=== PATIENT | male | born 1980 | race Caucasian/White ===

== ENCOUNTER → 2017-06-11 09:36 | Outpatient (REF) | payer BC, SELFPAY ==
[2017-06-11 21:35] LABS: Amphetamine/Metha Screen,Urine Negative ng/mL (<1000); Barbiturates Screen,Urine Negative ng/mL (<200); Benzodiazepines Screen,Urine Positive ng/mL (200); Cannabinoid Screen,Urine Negative ng/mL (<50); Cocaine Screen,Urine Negative ng/g (<300); Methadone Screen,Urine Negative ng/mL (<300); Opiate Screen,Urine Negative ng/mL (<300); Phencyclidine Screen,Urine Negative ng/mL (<25)
== END ==
LOC: LAB 09:36
PROVIDERS: Visit Provider Emergency Medicine
DX: Z79.899 Other long term (current) drug therapy (principal)
CPT/HCPCS: 80305

== ENCOUNTER → 2017-09-06 08:59 | Outpatient (REF) | payer BC, SELFPAY ==
[2017-09-06 14:13] LABS: Amphetamine/Metha Screen,Urine Negative ng/mL (<1000); Barbiturates Screen,Urine Negative ng/mL (<200); Benzodiazepines Screen,Urine Positive ng/mL (200); Cannabinoid Screen,Urine Negative ng/mL (<50); Cocaine Screen,Urine Negative ng/g (<300); Methadone Screen,Urine Negative ng/mL (<300); Opiate Screen,Urine Negative ng/mL (<300); Phencyclidine Screen,Urine Negative ng/mL (<25)
== END ==
LOC: LAB 08:59
PROVIDERS: Visit Provider Emergency Medicine
DX: Z79.899 Other long term (current) drug therapy (principal)
CPT/HCPCS: 80305

== ENCOUNTER → 2017-11-29 13:31 | Outpatient (REF) | payer BC, SELFPAY ==
[2017-11-29 14:26] LABS: Amphetamine/Metha Screen,Urine Negative ng/mL (<1000); Barbiturates Screen,Urine Negative ng/mL (<200); Benzodiazepines Screen,Urine Positive ng/mL (<200); Cannabinoid Screen,Urine Negative ng/mL (<50); Cocaine Screen,Urine Negative ng/mL (<300); Methadone Screen,Urine Negative ng/mL (<300); Opiate Screen,Urine Negative ng/mL (<300); Phencyclidine Screen,Urine Negative ng/mL (<25)
== END ==
LOC: LAB 13:31
PROVIDERS: Visit Provider Emergency Medicine
DX: Z79.899 Other long term (current) drug therapy (principal)
CPT/HCPCS: 80305

== ENCOUNTER → 2018-03-04 13:46 | Outpatient (CLI) | payer BC, SELFPAY ==
[2018-03-04 14:44] LABS: Amphetamine/Metha Screen,Urine Negative ng/mL (<1000); Barbiturates Screen,Urine Negative ng/mL (<200); Benzodiazepines Screen,Urine Negative ng/mL (<200); Cannabinoid Screen,Urine Negative ng/mL (<50); Cocaine Screen,Urine Negative ng/mL (<300); Methadone Screen,Urine Negative ng/mL (<300); Opiate Screen,Urine Negative ng/mL (<300); Phencyclidine Screen,Urine Negative ng/mL (<25)
== END ==
PROVIDERS: Visit Provider Emergency Medicine
DX: Z79.899 Other long term (current) drug therapy (principal)
CPT/HCPCS: 80305

== ENCOUNTER → 2018-06-02 13:59 | Outpatient (CLI) | payer BC, SELFPAY ==
[2018-06-02 16:26] LABS: Amphetamine/Metha Screen,Urine Negative ng/mL (<1000); Barbiturates Screen,Urine Negative ng/mL (<200); Benzodiazepines Screen,Urine Positive ng/mL (<200); Cannabinoid Screen,Urine Negative ng/mL (<50); Cocaine Screen,Urine Negative ng/mL (<300); Methadone Screen,Urine Negative ng/mL (<300); Opiate Screen,Urine Negative ng/mL (<300); Phencyclidine Screen,Urine Negative ng/mL (<25)
== END ==
PROVIDERS: Visit Provider Emergency Medicine
DX: Z79.899 Other long term (current) drug therapy (principal)
CPT/HCPCS: 80305

== ENCOUNTER → 2018-09-02 13:41 | Outpatient (CLI) | payer BC, SELFPAY ==
[2018-09-02 15:28] LABS: Amphetamine/Metha Screen,Urine Negative ng/mL (<1000); Barbiturates Screen,Urine Negative ng/mL (<200); Benzodiazepines Screen,Urine Positive ng/mL (<200); Cannabinoid Screen,Urine Negative ng/mL (<50); Cocaine Screen,Urine Negative ng/mL (<300); Methadone Screen,Urine Negative ng/mL (<300); Opiate Screen,Urine Negative ng/mL (<300); Phencyclidine Screen,Urine Negative ng/mL (<25)
== END ==
PROVIDERS: Visit Provider Emergency Medicine
DX: F41.9 Anxiety disorder, unspecified (principal)
CPT/HCPCS: 80305

== ENCOUNTER → 2018-12-01 13:48 | Outpatient (CLI) | payer BC, SELFPAY ==
[2018-12-01 14:29] LABS: Amphetamine/Metha Screen,Urine Negative ng/mL (<1000); Barbiturates Screen,Urine Negative ng/mL (<200); Benzodiazepines Screen,Urine Positive ng/mL (<200); Cannabinoid Screen,Urine Negative ng/mL (<50); Cocaine Screen,Urine Negative ng/mL (<300); Methadone Screen,Urine Negative ng/mL (<300); Opiate Screen,Urine Negative ng/mL (<300); Phencyclidine Screen,Urine Negative ng/mL (<25)
== END ==
PROVIDERS: Visit Provider Emergency Medicine
DX: Z79.899 Other long term (current) drug therapy (principal)
CPT/HCPCS: 80305

== ENCOUNTER → 2019-02-20 13:35 | Outpatient (CLI) | payer BC, SELFPAY ==
[2019-02-20 15:12] LABS: Amphetamine/Metha Screen,Urine Negative ng/mL (<1000); Barbiturates Screen,Urine Negative ng/mL (<200); Benzodiazepines Screen,Urine Positive ng/mL (<200); Cannabinoid Screen,Urine Negative ng/mL (<50); Cocaine Screen,Urine Negative ng/mL (<300); Methadone Screen,Urine Negative ng/mL (<300); Opiate Screen,Urine Negative ng/mL (<300); Phencyclidine Screen,Urine Negative ng/mL (<25)
== END ==
PROVIDERS: Visit Provider Emergency Medicine
DX: Z79.899 Other long term (current) drug therapy (principal)
CPT/HCPCS: 80305

== ENCOUNTER → 2019-05-20 16:39 | Outpatient (CLI) | payer BC, SELFPAY ==
[2019-05-20 17:34] LABS: Amphetamine/Metha Screen,Urine Negative ng/mL (<1000); Barbiturates Screen,Urine Negative ng/mL (<200); Benzodiazepines Screen,Urine Positive ng/mL (<200); Cannabinoid Screen,Urine Negative ng/mL (<50); Cocaine Screen,Urine Negative ng/mL (<300); Methadone Screen,Urine Negative ng/mL (<300); Opiate Screen,Urine Negative ng/mL (<300); Phencyclidine Screen,Urine Negative ng/mL (<25)
== END ==
PROVIDERS: Visit Provider Emergency Medicine
DX: Z79.899 Other long term (current) drug therapy (principal)
CPT/HCPCS: 80305

== ENCOUNTER → 2020-06-01 14:11 | Outpatient (CLI) | payer SELFPAY ==
[2020-06-01 15:20] LABS: Amphetamine/Metha Screen,Urine Negative ng/ml (<1000)
[2020-06-01 15:21] LABS: Barbiturates Screen,Urine Negative ng/ml (<200)
[2020-06-01 15:22] LABS: Benzodiazepines Screen,Urine Positive ng/ml (<200)
[2020-06-01 15:23] LABS: Cannabinoid Screen,Urine Negative ng/ml (<50); Cocaine Screen,Urine Negative ng/ml (<300)
[2020-06-01 15:24] LABS: Methadone Screen,Urine Negative ng/ml (<300); Opiate Screen,Urine Negative ng/ml (<300)
[2020-06-01 15:25] LABS: Phencyclidine Screen,Urine Negative ng/ml (<25)
== END ==
PROVIDERS: Visit Provider Emergency Medicine
DX: F41.9 Anxiety disorder, unspecified (principal); Z79.899 Other long term (current) drug therapy
CPT/HCPCS: 80305

== ENCOUNTER → 2020-08-25 12:03 | Outpatient (CLI) | payer SELFPAY ==
[2020-08-25 12:34] LABS: Basophils # 0.1 K/mm3 (0-0.2); Basophils % 1.4 % (0.1-2.0); Eosinophils # 0.3 K/mm3 (0.0-0.4); Eosinophils % 5.1 % (0.1-12.0); Hematocrit 44.1 % (42.0-52.0); Hemoglobin 14.3 g/dL (14.1-18.0); Lymphocytes # 1.5 K/mm3 (0.7-4.5); Lymphocytes % 23.5 % (10-50); Mean Corpuscular HGB Conc 32.4 g/dL (31.8-35.4); Mean Corpuscular Hemoglobin 29.9 pg (27.0-31.2); Mean Corpuscular Volume 92.3 fl (80-94); Mean Platelet Volume 6.9 fl (7.4-10.4); Monocytes # 0.3 K/mm3 (0.1-1.0); Monocytes % 4.7 % (1.7-9.3); Neutrophils # 4.1 K/mm3 (1.8-7.8); Neutrophils % 65.3 % (37.0-80.0); Platelet Count 290 K/mm3 (142-424); Red Blood Count 4.77 M/mm3 (4.60-6.20); Red Cell Distribution Width 13.4 % (11.5-17.5); White Blood Count 6.2 K/mm3 (4.8-10.8)
[2020-08-25 13:14] LABS: Alanine Aminotransferase 34 U/L (12-78); Albumin Level 5.1 g/dl (3.5-5.0); Albumin/Globulin Ratio 1.8 (1.1-1.8); Alkaline Phosphatase 58 U/L (38-126); Anion Gap 8.8 mEq/L (5-15); Aspartate Amino Transferase 48 U/L (17-59); Bilirubin,Total 0.5 mg/dl (0.2-1.3); Blood Urea Nitrogen 13 mg/dl (9-20); Calcium 10.4 mg/dl (8.4-10.2); Carbon Dioxide 33 mmol/L (22.0-30.0); Chloride 103 mmol/L (98-107); Cholesterol 228 mg/dl (140-200); Estimated Glomerular Filt Rate 109 ml/min (>60); GFR (African American) 132 ML/MIN (>60); Globulin 2.9 g/dL (1.3-3.2); Glucose 110 mg/dl (74-100); Potassium 4.8 mmoL/L (3.5-5.1); Sodium 140 mmol/L (136-145); Triglycerides 50 mg/dl (30-150); VLDL Cholesterol 10 mg/dL (0-40)
[2020-08-25 13:23] LABS: Chol/HDL Ratio 1.7 (1-3.5); HDL Cholesterol 133 mg/dl (40-60)
[2020-08-25 13:25] LABS: Direct LDL Cholesterol 81.52 mg/dL (100-129)
[2020-08-25 13:30] LABS: Free T4 (Free Thyroxine) 0.77 ng/dl (0.78-2.19)
[2020-08-25 13:31] LABS: 25-OH Vitamin D, Total 28.1 ng/mL (30-100)
[2020-08-25 13:44] LABS: Thyroid Stimulating Hormone 0.63 uIU/mL (0.465-4.68)
== END ==
PROVIDERS: Visit Provider Emergency Medicine
DX: R53.83 Other fatigue (principal); E55.9 Vitamin D deficiency, unspecified
CPT/HCPCS: 36415; 80053; 80061; 82306; 84439; 84443; 85025

== ENCOUNTER → 2020-12-23 15:18 | Outpatient (CLI) | payer SELFPAY ==
[2020-12-23 15:49] LABS: Benzodiazepines Screen,Urine Positive ng/ml (<200)
[2020-12-23 15:50] LABS: Amphetamine/Metha Screen,Urine Negative ng/ml (<1000); Barbiturates Screen,Urine Negative ng/ml (<200)
[2020-12-23 15:51] LABS: Cannabinoid Screen,Urine Negative ng/ml (<50)
[2020-12-23 15:52] LABS: Cocaine Screen,Urine Negative ng/ml (<300); Methadone Screen,Urine Negative ng/ml (<300)
[2020-12-23 15:53] LABS: Opiate Screen,Urine Negative ng/ml (<300); Phencyclidine Screen,Urine Negative ng/ml (<25)
== END ==
PROVIDERS: Visit Provider Emergency Medicine
DX: Z79.899 Other long term (current) drug therapy (principal)
CPT/HCPCS: 80305

== ENCOUNTER → 2021-03-24 13:24 | Outpatient (CLI) | payer BC, SELFPAY ==
[2021-03-24 22:46] LABS: Amphetamine/Metha Screen,Urine Negative ng/ml (<1000)
[2021-03-24 22:47] LABS: Barbiturates Screen,Urine Negative ng/ml (<200)
[2021-03-24 22:48] LABS: Benzodiazepines Screen,Urine Positive ng/ml (<200)
[2021-03-24 22:49] LABS: Cannabinoid Screen,Urine Negative ng/ml (<50)
[2021-03-24 23:11] LABS: Cocaine Screen,Urine Negative ng/ml (<300)
[2021-03-24 23:12] LABS: Methadone Screen,Urine Negative ng/ml (<300); Opiate Screen,Urine Negative ng/ml (<300)
[2021-03-24 23:13] LABS: Phencyclidine Screen,Urine Negative ng/ml (<25)
== END ==
PROVIDERS: Visit Provider Emergency Medicine
DX: F41.9 Anxiety disorder, unspecified (principal); Z01.89 Encounter for other specified special examinations
CPT/HCPCS: 80305

== ENCOUNTER → 2021-06-21 14:32 | Outpatient (CLI) | payer SELFPAY ==
[2021-06-21 16:21] LABS: Amphetamine/Metha Screen,Urine Negative ng/ml (<1000); Benzodiazepines Screen,Urine Positive ng/ml (<200)
[2021-06-21 16:22] LABS: Barbiturates Screen,Urine Negative ng/ml (<200)
[2021-06-21 16:23] LABS: Cannabinoid Screen,Urine Negative ng/ml (<50); Methadone Screen,Urine Negative ng/ml (<300)
[2021-06-21 16:24] LABS: Cocaine Screen,Urine Negative ng/ml (<300)
[2021-06-21 16:25] LABS: Opiate Screen,Urine Negative ng/ml (<300); Phencyclidine Screen,Urine Negative ng/ml (<25)
== END ==
PROVIDERS: Visit Provider Emergency Medicine
DX: Z79.899 Other long term (current) drug therapy (principal)
CPT/HCPCS: 80305

== ENCOUNTER 2021-09-06 17:45 | Observation (INO) | payer BC, SELFPAY ==
[2021-09-06 17:46] VITALS: BP 129/102; PULSE 80; RESP 15; TEMP 37.3; O2SAT 97; BMI 20.3
[2021-09-06 17:58] LABS: POC Glucose,Bedside 87 (70-110)
--- NOTE | 2021-09-06 18:10 | HMH.EDGENADL ---
ED Disposition Clinical Impression: Altered mental status Qualifiers: Altered mental status type: delirium Qualified Code(s): R41.0 - Disorientation, unspecified Disposition: Admitted as Observation Condition on Discharge: Fair Instructions: DI for Altered Mental Status Referrals: Roderick Mi MD [Primary Care Provider] - - Critical Care Critical Care Time: No Attestation: On 09/06/21, the high probability of a clinically significant, sudden or life threatening deterioration of the following system(s) required my full and direct attention, intervention and personal management. The time I documented below is in addition to time spent performing reported procedures but includes the following listed in this critical care notation. Medical Decision Making - Prabhu Inquiry Pt receiving controlled substance: Yes Prabhu was queried for this patient: Yes Risks and benefits of using a controlled substance: were not discussed with pt by me Vital Signs: 09/06/21 17:46 Temperature 99.2 F Temperature Source Oral Pulse Rate [Right Radial] 80 Respiratory Rate 15 Blood Pressure [Right Arm] 129/102 H Blood Pressure Mean [Right Arm] 111 Blood Pressure Source [Right Arm] Automatic Cuff Blood Pressure Position [Right Arm] Sitting 02 Sat by Pulse Oximetry 97 Oxygen Delivery Method Room Air - Lab Data Lab Results 09/06/21 17:51: POC Glucose 87 09/06/21 17:55: WBC 12.6 H, RBC 5.56, Hgb 17.3, Hct 49.1, MCV 88.2, MCH 31.1, MCHC 35.2, RDW 13.3, Plt Count 351, MPV 7.6, Neut % (Auto) 75.0, Lymph % (Auto) 15.8, [place] % (Auto) 5.9, Eos % (Auto) 1.4, Baso % (Auto) 2.0, Neut # (Auto) 9.5 H, Lymph # (Auto) 2.0, [place] # (Auto) 0.7, Eos # (Auto) 0.2, Baso # (Auto) 0.3 H 09/06/21 17:55: Sodium 138, Potassium 3.7, Chloride 106, Carbon Dioxide 24, Anion Gap 11.7, BUN 14, Creatinine 0.70, Estimated Creat Clear 138, Estimated GFR 126, Est GFR ( Amer) 153, Glucose 116 H, Calcium 9.9, Total Bilirubin 1.0, AST 34, ALT 29, Alkaline Phosphatase 65, Total Protein 7.8, Albumin 4.7, Globulin 3.1, Albumin/Globulin Ratio 1.5, Salicylates < 1.0 L, Acetaminophen < 10 L 09/06/21 17:55: Lactate 0.8 09/06/21 17:55: Plasma/Serum Alcohol < 10 09/06/21 19:00: SARS-CoV-2 (PCR) Not detected, Influenza A Untype (PCR) Not detected, Influenza Type B (PCR) Not detected Result diagrams: 09/06/21 17:55 09/06/21 17:55 Orders (Tests/Meds): ED MEDICATIONS Generic Name Dose Route Start Last Admin Trade Name Freq PRN Reason Stop Dose Admin Sodium Chloride 1,000 mls @ 999 mls/hr 09/06/21 18:15 09/06/21 18:18 Sod Chlor 0.9% 1000ml Bag IV 09/06/21 19:15 999 mls/hr .Q1H1M ARIN Administration Sodium Chloride 10 ml 09/06/21 18:15 Sodium Chloride 0.9% 10ml Flush Syringe IV 10/06/21 18:14 NEEDED PRN Maintain IV Site Sodium Chloride 10 ml 09/06/21 18:52 Sodium Chloride 0.9% 10ml Vial IV 10/06/21 18:51 NEEDED PRN to Dilute Lorazepam inj Sodium Chloride 10 ml 09/06/21 19:23 Sodium Chloride 0.9% 10ml Vial IV 10/06/21 19:22 NEEDED PRN to Dilute Lorazepam inj Discontinued Medications Generic Name Dose Route Start Last Admin Trade Name Freq PRN Reason Stop Dose Admin Lorazepam 1 mg 09/06/21 18:52 09/06/21 18:53 Lorazepam 2mg/Ml Vial IV 09/06/21 18:53 1 mg ONCE ONE Administration Lorazepam 1 mg 09/06/21 19:23 09/06/21 19:40 Lorazepam 2mg/Ml Vial IV 09/06/21 19:24 1 mg ONCE ONE Administration ORDERS Category Date Time Status C-Reactive Protein Stat Lab 09/06/21 17:55 Received Drug Screen,Urine Stat Lab 09/06/21 20:17 Received ESR [Erythrocyte Sedimentation Rate] Stat Lab 09/06/21 17:55 Received Serum Drug Screen [Drug Sreen (Blood or Serum)] Stat Lab 09/06/21 18:33 Received Urinalysis and Microscopic Stat Lab 09/06/21 20:17 Received Blood Culture Stat Micro 09/06/21 18:15 Received - Radiology Data #1 Image(s): Chest Image Reviewed: Yes I hav
[2021-09-06 18:13] VITALS: BMI 20.3
--- NOTE | 2021-09-06 18:14 | XR_ITS ---
PROCEDURE INFORMATION: Exam: XR Chest Exam date and time: 09/06/2021 6:42 PM Age: 40 years old Clinical indication: Other: AMS TECHNIQUE: Imaging protocol: XR of the chest. Views: 1 view. COMPARISON: No relevant prior studies available. FINDINGS: Lungs: Lungs are hyperinflated and clear. Pleural spaces: Unremarkable. No pleural effusion. No pneumothorax. Heart/Mediastinum: Unremarkable. No cardiomegaly. Bones/joints: Unremarkable. IMPRESSION: No acute findings.
--- NOTE | 2021-09-06 18:15 | CT_ITS ---
PROCEDURE INFORMATION: Exam: CT Head Without Contrast Exam date and time: 09/06/2021 6:36 PM Age: 40 years old Clinical indication: Altered mental status/memory loss; Additional info: AMS TECHNIQUE: Imaging protocol: Computed tomography of the head without contrast. Radiation optimization: All CT scans at this facility use at least one of these dose optimization techniques: automated exposure control; mA and/or kV adjustment per patient size (includes targeted exams where dose is matched to clinical indication); or iterative reconstruction. Other technique: STROKE PROTOCOL was implemented. COMPARISON: No relevant prior studies available. FINDINGS: Limitations: Patient motion which obscures detail. Brain: In no obvious acute infarction or intracranial hemorrhage. Cerebral ventricles: No ventriculomegaly. Paranasal sinuses: Visualized sinuses are unremarkable. No fluid levels. Mastoid air cells: Visualized mastoid air cells are well aerated. Bones/joints: Unremarkable. No acute fracture. Soft tissues: Unremarkable. IMPRESSION: Limited examination due to patient motion. No obvious large infarction or hemorrhage. ASSESSMENT: ASPECTS ([place] Stroke Program Early CT Score) is 10.
[2021-09-06 18:35] LABS: Basophils # 0.3 K/mm3 (0-0.2); Eosinophils # 0.2 K/mm3 (0.0-0.4); Eosinophils % 1.4 % (0.1-12.0); Hematocrit 49.1 % (42.0-52.0); Hemoglobin 17.3 g/dL (14.1-18.0); Lymphocytes % 15.8 % (10-50); Mean Corpuscular HGB Conc 35.2 g/dL (31.8-35.4); Mean Corpuscular Hemoglobin 31.1 pg (27.0-31.2); Mean Corpuscular Volume 88.2 fl (80-94); Mean Platelet Volume 7.6 fl (7.4-10.4); Monocytes # 0.7 K/mm3 (0.1-1.0); Monocytes % 5.9 % (1.7-9.3); Neutrophils # 9.5 K/mm3 (1.8-7.8); Platelet Count 351 K/mm3 (142-424); Red Blood Count 5.56 M/mm3 (4.60-6.20); Red Cell Distribution Width 13.3 % (11.5-17.5); White Blood Count 12.6 K/mm3 (4.8-10.8)
[2021-09-06 18:42] LABS: Alanine Aminotransferase 29 U/L (12-78); Albumin Level 4.7 g/dl (3.5-5.0); Albumin/Globulin Ratio 1.5 (1.1-1.8); Alkaline Phosphatase 65 U/L (38-126); Anion Gap 11.7 mEq/L (5-15); Aspartate Amino Transferase 34 U/L (17-59); Blood Urea Nitrogen 14 mg/dl (9-20); Calcium 9.9 mg/dl (8.4-10.2); Carbon Dioxide 24 mmol/L (22.0-30.0); Chloride 106 mmol/L (98-107); Creatinine Clearance Estimated 138 mL/min (50-200); Estimated Glomerular Filt Rate 126 ml/min (>60); GFR (African American) 153 ML/MIN (>60); Globulin 3.1 g/dL (1.3-3.2); Glucose 116 mg/dl (74-100); Potassium 3.7 mmoL/L (3.5-5.1); Sodium 138 mmol/L (136-145); Total Protein,Serum 7.8 g/dl (6.3-8.2)
[2021-09-06 18:43] LABS: Acetaminophen < 10 ug/ml (10-30); Ethyl Alcohol < 10 mg/dl (0-10); Lactic Acid 0.8 mmol/L (0.7-2.1); Salicylate < 1.0 mg/dL (2.0-20.0)
--- NOTE | 2021-09-06 18:57 | PC.NURSE ---
KARI MASON spoke with luz maria at this time
[2021-09-06 19:08] LABS: Coronavirus 19, PCR Not Detected (NotDetected); Influenza A, PCR Not Detected (NotDetected); Influenza B, PCR Not Detected (NotDetected)
--- NOTE | 2021-09-06 20:02 | PC.NURSE ---
Pt father at bedside. Pt still acting altered and not speaking coherently. No needs per family at this time.
[2021-09-06 20:21] LABS: Microscopic, Urine URINE MICROSCOPIC (MICROSCOPIC)
[2021-09-06 20:29] LABS: Appearance,Urine SL CLOUDY (Clear); Bilirubin,Urine Negative (Negative); Blood, Urine Negative (Negative); Color,Urine YELLOW (Yellow); Glucose,Urine (UA) Negative (Negative); Ketones,Urine Negative (Negative); Leukocyte Esterase,Urine Negative (Negative); Nitrate,Urine Negative (Negative); Protein,Urine TRACE (Negative); Specific Gravity, Urine 1.025 (1.005-1.030)
[2021-09-06 20:29] LABS: C-Reactive Protein < 0.3 mg/L (0-4)
[2021-09-06 21:00] LABS: Erythrocyte Sedimentation Rate 4 mm/hr (0-15)
--- NOTE | 2021-09-06 21:01 | PC.NURSE ---
Report called to Christin
[2021-09-06 21:05] VITALS: BP 160/90; PULSE 87; O2SAT 97
[2021-09-06 21:09] LABS: Bacteria,Urine 1+ /lpf; RBC,Urine Occasional #/hpf (0-3)
--- NOTE | 2021-09-06 21:20 | PC.NURSE ---
patient up to floor via wheelchair @ this time.
[2021-09-06 21:26] VITALS: BP 160/90; PULSE 80; RESP 16; TEMP 37.3; O2SAT 97
[2021-09-06 21:29] VITALS: BP 121/88; PULSE 72; RESP 18; TEMP 37.6; O2SAT 98; BMI 20.8
[2021-09-06 22:29] LABS: Amphetamine/Metha Screen,Urine Negative ng/ml (<1000); Barbiturates Screen,Urine Negative ng/ml (<200)
[2021-09-06 22:30] LABS: Benzodiazepines Screen,Urine Positive ng/ml (<200); Cannabinoid Screen,Urine Negative ng/ml (<50)
[2021-09-06 22:31] LABS: Cocaine Screen,Urine Negative ng/ml (<300)
[2021-09-06 22:32] LABS: Methadone Screen,Urine Negative ng/ml (<300); Opiate Screen,Urine Negative ng/ml (<300)
[2021-09-06 22:33] LABS: Phencyclidine Screen,Urine Negative ng/ml (<25)
[2021-09-07] VITALS (8 sets, daily range): BP systolic 133–151; BP diastolic 76–93; PULSE 79–93; RESP 15–20; TEMP 36.7–38.3; O2SAT 96–99; BMI 20.7
--- NOTE | 2021-09-07 04:00 | PC.NURSE ---
Patient has remains altered at this time and has not slept thus far. Patient was able to tell me his first name upon arriving to the floor and nothing more. Patient was made 1:1 when arriving to the floor. Patient's verbal responses are inappropriate and garbled when asked questions, patient at times has difficulty finding words. Patient has been quite talkative, impulsive, spontaneous conversations, and hallucinating at times. He has remained cooperative with staff. Patient has had 4 incontinent episodes of foul, yellow liquid stools. Have not been able to obtain specimen due to consistency and incontinence. Patient had a low grade fever and was treated per JUL.
--- NOTE | 2021-09-07 07:21 | P.CONPHA_ITS ---
[facility] Pharmacy VTE Monitoring - Patient Demographics Admission date: 09/06/21 Report Date: 09/07/21 Time: 07:21 Allergies/Adverse Reactions: Patient Allergies No Known Allergies Allergy (Verified 06/21/21 08:57) Height: 1.83 m Weight: 69.626 kg Patient Problems: Current Active Problems Altered mental status (Acute) - VTE Risk Labs: VTE Related Lab Results Hgb 17.3 g/dL (14.1-18.0) 09/06/21 17:55 Hct 49.1 % (42.0-52.0) 09/06/21 17:55 Plt Count 351 K/mm3 (142-424) 09/06/21 17:55 BUN 14 mg/dl (9-20) 09/06/21 17:55 Creatinine 0.70 mg/dl (0.66-1.25) 09/06/21 17:55 Estimated Creat Clear 138 mL/min (50-200) 09/06/21 17:55 VTE Score: 0 - Prophylaxis VTE Prophylaxis Ordered?: Yes Types of VTE Prophylaxis: TEDS Knee High Location of Applied Device: Bilateral Lower Extremeties
--- NOTE | 2021-09-07 07:21 | HMH.PHAINT ---
MEDICATION RECONCILIATION COMPLETED ON PATIENT USING EXTERNAL FILL HISTORY FROM PHARMACY AND SYDNEY REPORT. -YARELY CELESTIND
--- NOTE | 2021-09-07 10:52 | HMH.HP ---
*Admission Date: 09/06/21 *Chief complaint: Altered mental status *History of present illness: 40-year-old male patient presented to the [facility] emergency department via family vehicle for reports of altered mental status. Patient's mother was present in ED and provided all history. She reports he was ill for about a week with nausea/vomiting/diarrhea was admitted to [facility] for 24 hours and was discharged on Zofran. She reports he seemed to do better for several days and reports being tired and slept all day she went into check on him at 2 PM yesterday he was not acting normal she reports he was being monitor and verbally abusive. In the ED he talked minimally but he did deny pain, headaches, fevers/chills/body aches and did report nausea/vomiting/diarrhea had resolved from previously. His only medication is Xanax which is prescribed 4 times a day and mother reports he is not taking any on day of arrival. Mother reports he did have a drug problem but as far as she knows he is not currently using any drugs or alcohol. This morning patient is up and walking in groves with assistance he follows commands minimally, he is alert to person only is able to move all extremities with strength Urine drug screen revealed positive for benzodiazepines, which patient is prescribed Head CT revealed No obvious large infarction or hemorrhage. [facility] History I have reviewed the patient's past medical history: Yes Medical History: Reports:: Anxiety Denies:: Diabetes Mellitus Type 1, Diabetes Mellitus Type 2 *Have you ever received a pneumonia vaccine?: No (AMS) *Have you received a flu vaccine this season?: No (AMS) Other Medical History: Reports: Other Other Surgeries: Yes: No Previous Surgery Amputation: No Fractures: No - *Social History Smoking Status: Current every day smoker Tobacco Type: cigarettes # Packs/Day (cigarettes): 2 Alcohol Intake: never Substance Use Type: opiates, former substance user *Occupational Status:: employed Housing: house Household Members: family *Travel in the last 8 weeks: None - Psychiatric History Pschychiatric History:: Reports:: Anxiety Family Hx:: Unable to obtain Review of Systems - Review of Systems Review of systems:: unable to obtain Patient is unable to answer any questions and no family present Meds Home Medications Medication Instructions Recorded Confirmed Type cholecalciferol (vitamin D3) 25 25 mcg PO DAILY 06/21/21 09/07/21 History mcg (1,000 unit) capsule ALPRAZolam [Xanax 0.5mg tab] 0.5 mg PO QID 09/07/21 09/07/21 History Cholecalciferol (Vitamin D3) 1,250 mcg PO WEEKLY 09/07/21 09/07/21 History [Vitamin D3 50,000 unit Cap] ondansetron HCL [Ondansetron 4mg 4 mg PO TIDP PRN 09/07/21 09/07/21 History tab*] Allergies Allergy/AdvReac Type Severity Reaction Status Date / Time No Known Allergies Allergy Verified 06/21/21 08:57 Exam Vital signs and Labs for Last 24 Hours: Temp Pulse Resp BP Pulse Ox 98.1 F 84 20 133/90 99 09/07/21 07:44 09/07/21 07:44 09/07/21 07:44 09/07/21 07:44 09/07/21 07:44 Laboratory Results - last 24 hr 09/06/21 17:51: POC Glucose 87 09/06/21 17:55: WBC 12.6 H, RBC 5.56, Hgb 17.3, Hct 49.1, MCV 88.2, MCH 31.1, MCHC 35.2, RDW 13.3, Plt Count 351, MPV 7.6, Neut % (Auto) 75.0, Lymph % (Auto) 15.8, [place] % (Auto) 5.9, Eos % (Auto) 1.4, Baso % (Auto) 2.0, Neut # (Auto) 9.5 H, Lymph # (Auto) 2.0, [place] # (Auto) 0.7, Eos # (Auto) 0.2, Baso # (Auto) 0.3 H 09/06/21 17:55: Sodium 138, Potassium 3.7, Chloride 106, Carbon Dioxide 24, Anion Gap 11.7, BUN 14, Creatinine 0.70, Estimated Creat Clear 138, Estimated GFR 126, Est GFR ( Amer) 153, Glucose 116 H, Calcium 9.9, Total Bilirubin 1.0, AST 34, ALT 29, Alkaline Phosphatase 65, Total Protein 7.8, Albumin 4.7, Globulin 3.1, Albumin/Globulin Ratio 1.5, Salicylates < 1.0 L, Acetaminophen < 10 L 09/06/21 17:55: Lactate 0.8 09/06/21 17:55: Plasma/Serum Al
--- NOTE | 2021-09-07 19:59 | PC.NURSE ---
Pt at the start of shift was A/O to self and birthday. Speech was non tangible and all over the place. He was unable to follow commands. As the day has progressed he is showing signs of with drawl. I asked him what he took, and he denies taking anything other then his prescribed medication. As the day has went on he is A/O to self, place, and sometime situation. He is starting to show tremors, nausea, and agitation. After giving him clonidine he started to calm down a little and actually took a nap. He has not napped the entire time he has been here besides the hour he slept after taking the clonidine. He is very fidgety, but pleasant. Family came to visit today.
[2021-09-08] VITALS (13 sets, daily range): BP systolic 120–149; BP diastolic 67–96; PULSE 63–91; RESP 13–20; TEMP 36.3–36.9; O2SAT 95–99; BMI 20.4
--- NOTE | 2021-09-08 04:12 | PC.NURSE ---
pt restless and anxious, alert and oriented to name, , place, but needed remediation to time, pt was medicated with ativan x1 and was more confused and agitated after ativan was given, after ativan pt was hallucinating, confused to place and time, attempting to get out of bed and messing with bed covers thinking they were buckets at work, pt finally fell asleep and slept maybe 1 hour, noted dark scabbed spot on right thigh in which pt states was a bug bite, dr Mi aware. pt with cwol 8 before ativan, and 20 after ativan. after pt slept, pt is a&o to name, , year, but confused to place.
[2021-09-08 06:28] LABS: Basophils # 0.1 K/mm3 (0-0.2); Basophils % 0.9 % (0.1-2.0); Eosinophils # 0.2 K/mm3 (0.0-0.4); Eosinophils % 1.7 % (0.1-12.0); Hematocrit 44.3 % (42.0-52.0); Lymphocytes # 1.9 K/mm3 (0.7-4.5); Lymphocytes % 17.7 % (10-50); Mean Corpuscular Hemoglobin 29.9 pg (27.0-31.2); Mean Corpuscular Volume 87.9 fl (80-94); Mean Platelet Volume 7.1 fl (7.4-10.4); Monocytes # 0.9 K/mm3 (0.1-1.0); Monocytes % 8.5 % (1.7-9.3); Neutrophils # 7.6 K/mm3 (1.8-7.8); Neutrophils % 71.3 % (37.0-80.0); Platelet Count 342 K/mm3 (142-424); Red Blood Count 5.04 M/mm3 (4.60-6.20); Red Cell Distribution Width 13.2 % (11.5-17.5); White Blood Count 10.7 K/mm3 (4.8-10.8)
[2021-09-08 06:39] LABS: Anion Gap 11.3 mEq/L (5-15); Blood Urea Nitrogen 16 mg/dl (9-20); Calcium 9.1 mg/dl (8.4-10.2); Carbon Dioxide 26 mmol/L (22.0-30.0); Chloride 102 mmol/L (98-107); Creatinine Clearance Estimated 138 mL/min (50-200); Estimated Glomerular Filt Rate 126 ml/min (>60); GFR (African American) 153 ML/MIN (>60); Glucose 109 mg/dl (74-100); Potassium 3.3 mmoL/L (3.5-5.1); Sodium 136 mmol/L (136-145)
--- NOTE | 2021-09-08 10:05 | P.PN_ITS ---
Internal Medicine - PN: Subj *Date: 09/08/21 *Time: 08:00 Interval history: pt laying in bed answers questions when asked Exam Vital signs and Labs for Last 24 Hours: Temp Pulse Resp BP Pulse Ox 97.7 F 63 20 120/70 97 09/08/21 08:00 09/08/21 08:00 09/08/21 08:00 09/08/21 08:00 09/08/21 08:00 Laboratory Results - last 24 hr 09/08/21 05:51: WBC 10.7, RBC 5.04, Hgb 15.0, Hct 44.3, MCV 87.9, MCH 29.9, MCHC 34.0, RDW 13.2, Plt Count 342, MPV 7.1 L, Neut % (Auto) 71.3, Lymph % (Auto) 17.7, [place] % (Auto) 8.5, Eos % (Auto) 1.7, Baso % (Auto) 0.9, Neut # (Auto) 7.6, Lymph # (Auto) 1.9, [place] # (Auto) 0.9, Eos # (Auto) 0.2, Baso # (Auto) 0.1 09/08/21 05:51: Sodium 136, Potassium 3.3 L, Chloride 102, Carbon Dioxide 26, Anion Gap 11.3, BUN 16, Creatinine 0.70, Estimated Creat Clear 138, Estimated GFR 126, Est GFR ( Amer) 153, Glucose 109 H, Calcium 9.1 I & O for Last 24 hours: Intake & Output 09/05/21 09/06/21 09/07/21 09/08/21 11:59 11:59 11:59 11:59 Intake Total 360 / 360 840 / 840 Output Total 300 / 300 500 / 500 Balance 60 / 60 340 / 340 Weight 153 lb 7.985 oz 150 lb 11.208 oz - Constitutional no acute distress - *Routine HEENT Exam Head: Present: normocephalic Eye: Present: PERRL ENT: Present: mucous membranes moist - *Routine Neck Exam Present: supple. Absent: lymphadenopathy - *Routine Respiratory Exam Present: CTA bilaterally - *Routine Cardiovascular Exam Present: RRR - *Routine Abdominal Exam Present: soft, normoactive bowel sounds. Absent: tenderness - *Routine Extremities Exam Absent: cyanosis, clubbing, edema - *Routine Skin Exam Present: warm. Absent: rash - *Routine Neurological Exam Present: alert, altered mental status Assessment and Plan (1) Altered mental status Status: Acute Qualifiers: Altered mental status type: delirium Qualified Code(s): R41.0 - Disorientation, unspecified Category: Medical Code(s): R41.82 - Altered mental status, unspecified (2) Anxiety Status: Acute Category: Medical Code(s): F41.9 - Anxiety disorder, unspecified - Assessment and plan all Dx Assessment and Plan for all problems:: rounded with dr rubio all orders per dr romano mri brain lp labs
[2021-09-08 10:50] LABS: Adenovirus F 40/41, stool Not Detected (NotDetected); Astrovirus Not Detected (NotDetected); Campylobacter Not Detected (NotDetected); Clostridium Difficile A/B, PCR Not Detected (NotDetected); Cryptosporidium Not Detected (NotDetected); Cyclospora Cayetanesis Not Detected (NotDetected); Entamoeba histolytica Not Detected (NotDetected); Enteroaggregative E coli Not Detected (NotDetected); Enteropathogenic E coli Not Detected (NotDetected); Enterotoxigenic E coli Not Detected (NotDetected); Giardia lamblia Not Detected (NotDetected); Norovirus Not Detected (NotDetected); Plesimonas Shigalloides, PCR Not Detected (NotDetected); Rotavirus A Not Detected (NotDetected); Salmonella, PCR Not Detected (NotDetected); Sapovirus Not Detected (NotDetected); Shiga-like toxin E coli Not Detected (NotDetected); Shigella Enterovasive E coli Not Detected (NotDetected); Vibrio Cholerae Not Detected (NotDetected); Vibrio, PCR Not Detected (NotDetected); Yersinia Entercolitica, PCR Not Detected (NotDetected)
--- NOTE | 2021-09-08 11:55 | HMH.ANESCL ---
[facility] Anesthesia Checklist - Patient Identification Patient Identification: Arm Band, Family, Verbal (Name & ) - Structural Data Admitted From: Inpatient Planned Operative Procedure/s: Lumbar Puncture Consent for Planned Operative Procedure(s) Verified: Yes Verified Documents: Surgical Consent - Chart Verification Results Verified: CBC - Airway Assessment C-Spine Mobility Assessed: Yes TMJ Mobility Assessed: Yes - Neurological Assessment Level of Consciousness: Awake, Alert, Follows Commands - Anesthesia Plan Anesthesia Type: None [facility] History Medical History: Reports:: Anxiety Denies:: Diabetes Mellitus Type 1, Diabetes Mellitus Type 2 *Have you ever received a pneumonia vaccine?: No (AMS) *Have you received a flu vaccine this season?: No (AMS) Other Medical History: Reports: Other Anesthesia experience/problems:: none Other Surgeries: Yes: No Previous Surgery Amputation: No Fractures: No - *Social History Smoking Status: Current every day smoker Tobacco Type: cigarettes # Packs/Day (cigarettes): 2 Alcohol Intake: never Substance Use Type: opiates, former substance user *Occupational Status:: employed Housing: house Household Members: family *Travel in the last 8 weeks: None - Psychiatric History Pschychiatric History:: Reports:: Anxiety Family Hx:: Unable to obtain
--- NOTE | 2021-09-08 11:59 | HMH.PROC ---
[facility] Procedure Note Procedure Note:: Anesthesia consulted for LP. Patient positioned with family at bedside. Sterile prep with L3-L4 identified. 3ml local anesthetic injected with 1% Lidocaine. 20g spinal needle inserted, clear CSF noted. 4 vials filled with 2ml CSF. Patient tolerated procedure well. Orders given to nursing staff.
[2021-09-08 12:39] LABS: Glucose,CSF 67 mg/dl (40-70)
[2021-09-08 13:53] LABS: Appearance,CSF Clear (Clear); Red Blood Cell,CSF 14 cells/uL (0); Volume,CSF 10 mL; White Blood Cell,CSF 0 cells/uL (0-5)
[2021-09-08 14:13] LABS: Mononuclear WBCs,CSF 0 %; Polynuclear WBCs,CSF 0 %
--- NOTE | 2021-09-08 17:01 | PC.NURSE ---
Lumbar puncture performed at bedside today after patient had initially refused procedure unless Dr. iM was present. Alley Shah notified and stated Dr. Mi was seeing patient's in office and would not be able to come to patient's room. Patient alert and oriented X4. The patient's parents were informed of situation once at patient's bedside. Patient then agreeable to LP if parent's were allowed to be present. LP performed. VS stable before and after, patient on bedrest for 2 hours, no complications noted. Patient refuses to do MRI today and stated he was worn out and would do MRI over the weekend or on saturday.
[2021-09-09 04:00] VITALS: BP 138/73; PULSE 72; RESP 14; TEMP 36.8; O2SAT 96
--- NOTE | 2021-09-09 04:00 | PC.NURSE ---
PT RESTED WELL THROUGH THE NIGHT, PT REMAINS A&O, PT COMPLAINED OF STOMACH UPSET AND MEDICATED WITH ZOFRAN ONCE WITH RELIEF, NO OTHER ISSUES NOTED, VSS
[2021-09-09 04:44] VITALS: BMI 20.5
[2021-09-09 07:22] LABS: Anion Gap 10.1 mEq/L (5-15); Basophils # 0.1 K/mm3 (0-0.2); Basophils % 1.4 % (0.1-2.0); Blood Urea Nitrogen 12 mg/dl (9-20); Carbon Dioxide 25 mmol/L (22.0-30.0); Chloride 102 mmol/L (98-107); Creatinine Clearance Estimated 140 mL/min (50-200); Eosinophils # 0.1 K/mm3 (0.0-0.4); Eosinophils % 0.6 % (0.1-12.0); Estimated Glomerular Filt Rate 126 ml/min (>60); GFR (African American) 153 ML/MIN (>60); Glucose 109 mg/dl (74-100); Hematocrit 43.6 % (42.0-52.0); Lymphocytes # 1.7 K/mm3 (0.7-4.5); Lymphocytes % 18.4 % (10-50); Mean Corpuscular HGB Conc 34.5 g/dL (31.8-35.4); Mean Corpuscular Hemoglobin 30.6 pg (27.0-31.2); Mean Corpuscular Volume 88.8 fl (80-94); Mean Platelet Volume 7.1 fl (7.4-10.4); Monocytes # 0.9 K/mm3 (0.1-1.0); Monocytes % 9.3 % (1.7-9.3); Neutrophils # 6.5 K/mm3 (1.8-7.8); Neutrophils % 70.3 % (37.0-80.0); Platelet Count 350 K/mm3 (142-424); Potassium 3.1 mmoL/L (3.5-5.1); Red Blood Count 4.91 M/mm3 (4.60-6.20); Red Cell Distribution Width 13.3 % (11.5-17.5); Sodium 134 mmol/L (136-145); White Blood Count 9.2 K/mm3 (4.8-10.8)
[2021-09-09 08:00] VITALS: BP 132/72; PULSE 73; RESP 16; TEMP 36.9; O2SAT 98
--- NOTE | 2021-09-09 09:54 | HMH.ACPN2 ---
Internal Medicine - PN: Subj *Date: 09/10/21 *Time: 08:41 Interval history: doing better - more alert - spinal fluid -ok Exam Vital signs and Labs for Last 24 Hours: Temp Pulse Resp BP Pulse Ox 98.5 F 73 16 132/72 98 09/09/21 08:00 09/09/21 08:00 09/09/21 08:00 09/09/21 08:00 09/09/21 08:00 Laboratory Results - last 24 hr 09/08/21 09:36: Stl Aeromonas (PCR) Not detected, Stl C. cayetanensis PCR Not detected, Stool Rotavirus (PCR) Not detected, Stl Adenov F 40/41 PCR Not detected, Stool Astrovirus (PCR) Not detected, Stool Campylobacter PCR Not detected, Stl C.difficile Tox PCR Not detected, Stool Cryptosporidium PCR Not detected, Stl E.coli Shiga Tox PCR Not detected, Stool E coli O157 PCR Not detected, Stl Enterotoxigenic E PCR Not detected, Stool EPEC (PCR) Not detected, Stool EAEC (PCR) Not detected, Stl E. histolytica PCR Not detected, Stool Giardia Lamblia PCR Not detected, Stool Salmonella PCR Not detected, Stool Sapovirus (PCR) Not detected, Stl P. shigelloides PCR Not detected, Stl Shigella/EIEC PCR Not detected, St Y.enterocolitica PCR Not detected, Stool Vibrio (PCR) Not detected, Stl Vibrio cholerae PCR Not detected, Stl Norovirus GI/GII PCR Not detected 09/08/21 11:45: CSF Volume 10, CSF Appearance Clear, CSF WBC 0, CSF RBC 14, CSF Mononuclear WBCs % 0, CSF Polynuclear WBCs % 0 09/08/21 11:45: CSF Glucose 67, CSF Total Protein 32.0 09/09/21 06:48: WBC 9.2, RBC 4.91, Hgb 15.0, Hct 43.6, MCV 88.8, MCH 30.6, MCHC 34.5, RDW 13.3, Plt Count 350, MPV 7.1 L, Neut % (Auto) 70.3, Lymph % (Auto) 18.4, [place] % (Auto) 9.3, Eos % (Auto) 0.6, Baso % (Auto) 1.4, Neut # (Auto) 6.5, Lymph # (Auto) 1.7, [place] # (Auto) 0.9, Eos # (Auto) 0.1, Baso # (Auto) 0.1 09/09/21 06:48: Sodium 134 L, Potassium 3.1 L, Chloride 102, Carbon Dioxide 25, Anion Gap 10.1, BUN 12, Creatinine 0.70, Estimated Creat Clear 140, Estimated GFR 126, Est GFR ( Amer) 153, Glucose 109 H, Calcium 9.0 I & O for Last 24 hours: Intake & Output 09/06/21 09/07/21 09/08/21 09/09/21 11:59 11:59 11:59 11:59 Intake Total 360 / 360 840 / 840 Output Total 300 / 300 500 / 500 Balance 60 / 60 340 / 340 Weight 153 lb 7.985 oz 150 lb 11.208 oz 152 lb Microbiology Reports for the Last 24 Hours: Microbiology 09/06/21 17:55 Blood Blood Culture - Preliminary NO GROWTH AFTER 48 HOURS 09/06/21 17:55 Blood Blood Culture - Preliminary NO GROWTH AFTER 48 HOURS 09/08/21 11:45 Cerebral Spinal Fluid Gram Stain - Final - Constitutional no acute distress - *Routine HEENT Exam Head: Present: normocephalic Eye: Present: EOMI, PERRL ENT: Present: mucous membranes dry - *Routine Neck Exam Absent: JVD - *Routine Respiratory Exam Present: CTA bilaterally - *Routine Cardiovascular Exam Present: RRR - *Routine Abdominal Exam Present: soft - *Routine Extremities Exam Absent: full ROM - *Routine Skin Exam Present: intact - *Routine Neurological Exam Present: alert, CN II-XII intact - Routine Psychiatric Exam Present: normal affect Assessment and Plan (1) Altered mental status Status: Acute Qualifiers: Altered mental status type: delirium Qualified Code(s): R41.0 - Disorientation, unspecified Category: Medical Code(s): R41.82 - Altered mental status, unspecified (2) Anxiety Status: Acute Category: Medical Code(s): F41.9 - Anxiety disorder, unspecified
[2021-09-09 12:00] VITALS: BP 114/75; PULSE 61; RESP 16; TEMP 36.7; O2SAT 100
[2021-09-09 15:59] VITALS: BP 113/76; PULSE 111; RESP 16; TEMP 36.8; O2SAT 100
[2021-09-09 19:51] VITALS: BP 121/89; PULSE 66; RESP 20; TEMP 36.8; O2SAT 99
[2021-09-09 20:00] VITALS: O2SAT 99
[2021-09-10] VITALS: BP 133/88; PULSE 71; RESP 18; TEMP 36.8; O2SAT 99
[2021-09-10 04:00] VITALS: BP 113/77; PULSE 77; RESP 16; TEMP 36.8; O2SAT 100
[2021-09-10 04:45] VITALS: BMI 23.1
[2021-09-10 07:43] LABS: Basophils # 0.1 K/mm3 (0-0.2); Eosinophils # 0.1 K/mm3 (0.0-0.4); Eosinophils % 0.9 % (0.1-12.0); Hematocrit 46.8 % (42.0-52.0); Hemoglobin 15.9 g/dL (14.1-18.0); Lymphocytes # 1.8 K/mm3 (0.7-4.5); Lymphocytes % 17.2 % (10-50); Mean Corpuscular HGB Conc 34.1 g/dL (31.8-35.4); Mean Corpuscular Hemoglobin 30.5 pg (27.0-31.2); Mean Corpuscular Volume 89.5 fl (80-94); Monocytes # 0.8 K/mm3 (0.1-1.0); Monocytes % 7.3 % (1.7-9.3); Neutrophils # 7.6 K/mm3 (1.8-7.8); Neutrophils % 73.6 % (37.0-80.0); Platelet Count 404 K/mm3 (142-424); Red Blood Count 5.23 M/mm3 (4.60-6.20); Red Cell Distribution Width 13.3 % (11.5-17.5); White Blood Count 10.3 K/mm3 (4.8-10.8)
[2021-09-10 07:46] LABS: Blood Urea Nitrogen 7 mg/dl (9-20); Calcium 9.2 mg/dl (8.4-10.2); Carbon Dioxide 27 mmol/L (22.0-30.0); Chloride 103 mmol/L (98-107); Creatinine Clearance Estimated 157 mL/min (50-200); Estimated Glomerular Filt Rate 126 ml/min (>60); GFR (African American) 153 ML/MIN (>60); Glucose 107 mg/dl (74-100); Sodium 138 mmol/L (136-145)
[2021-09-10 08:00] VITALS: BP 136/81; PULSE 64; RESP 16; TEMP 37.1; O2SAT 99
--- NOTE | 2021-09-10 08:08 | PC.NURSE ---
Spoke with isha from lab pts K was 3.0.
--- NOTE | 2021-09-10 08:12 | PC.NURSE ---
Paged at risk paraprofessional for Shmuel.
--- NOTE | 2021-09-10 10:02 | HMH.DCSUM ---
General - General Admission date:: 09/06/21 Discharge date: 09/10/21 HPI HPI: 40-year-old male patient presented to the [facility] emergency department via family vehicle for reports of altered mental status. Patient's mother was present in ED and provided all history. She reports he was ill for about a week with nausea/vomiting/diarrhea was admitted to [facility] for 24 hours and was discharged on Zofran. She reports he seemed to do better for several days and reports being tired and slept all day she went into check on him at 2 PM yesterday he was not acting normal she reports he was being monitor and verbally abusive. In the ED he talked minimally but he did deny pain, headaches, fevers/chills/body aches and did report nausea/vomiting/diarrhea had resolved from previously. His only medication is Xanax which is prescribed 4 times a day and mother reports he is not taking any on day of arrival. Mother reports he did have a drug problem but as far as she knows he is not currently using any drugs or alcohol. This morning patient is up and walking in groves with assistance he follows commands minimally, he is alert to person only is able to move all extremities with strength Urine drug screen revealed positive for benzodiazepines, which patient is prescribed Head CT revealed No obvious large infarction or hemorrhage. Hospital Course Hospital Course: Patient was admitted with mental status changes, agitation and confusion. His urine drug screen was as expected, but gabapentin was not tested. Patient underwent lumbar puncture after prolonged confusion. Cultures are negative. Patient declined MRI of the brain here. Was seen this morning along with Dr. Mi. He was alert, oriented, had an uneventful night. Headaches, no seizures. He answers all questions appropriately. We will send him home today follow-up with Dr. Mi tomorrow in the office. Consider outpatient neurology evaluation due to this episode of mentation change. Outpatient MRI of the brain would be helpful. Objective Vital signs: Temp Pulse Resp BP Pulse Ox 98.8 F 64 16 136/81 99 09/10/21 08:00 09/10/21 08:00 09/10/21 08:00 09/10/21 08:00 09/10/21 08:00 no acute distress - *Routine HEENT Exam Head: Present: normocephalic Eye: Present: EOMI, PERRL ENT: Present: mucous membranes moist - *Routine Neck Exam Present: supple - *Routine Respiratory Exam Present: CTA bilaterally - *Routine Cardiovascular Exam Present: RRR - *Routine Abdominal Exam Present: soft, normoactive bowel sounds. Absent: tenderness - *Routine Extremities Exam Absent: cyanosis, clubbing, edema - *Routine Skin Exam Present: warm. Absent: rash Results Labs on day of discharge: Labs from last 24 hours 09/10/21 09/10/21 06:20 06:20 WBC 10.3 RBC 5.23 Hgb 15.9 Hct 46.8 MCV 89.5 MCH 30.5 MCHC 34.1 RDW 13.3 Plt Count 404 MPV 7.0 L Neut % (Auto) 73.6 Lymph % (Auto) 17.2 Starr % (Auto) 7.3 Eos % (Auto) 0.9 Baso % (Auto) 1.0 Neut # (Auto) 7.6 Lymph # (Auto) 1.8 Starr # (Auto) 0.8 Eos # (Auto) 0.1 Baso # (Auto) 0.1 Sodium 138 Potassium 3.0 L Chloride 103 Carbon Dioxide 27 Anion Gap 11.0 BUN 7 L D Creatinine 0.70 Estimated Creat Clear 157 Estimated GFR 126 Est GFR ( Amer) 153 Glucose 107 H Calcium 9.2 Preliminary micro results at discharge 09/08/21 11:45 CSF Culture - Preliminary Cerebral Spinal Fluid NO GROWTH AFTER 24 HOURS 09/06/21 17:55 Blood Culture - Preliminary Blood NO GROWTH AFTER 48 HOURS 09/06/21 17:55 Blood Culture - Preliminary Blood NO GROWTH AFTER 48 HOURS DS: Diagnosis - Discharge Diagnosis (1) Altered mental status Status: Resolved (2) Anxiety Status: Chronic Discharge Plan - Patient Discharge Instructions ACTIVITY: Continue current activity DIET: continue same
--- NOTE | 2021-09-11 15:19 | CARE MANAGER ---
Attempted post-discharge phone interview and patient did not answer the phone.
[2021-09-13 05:10] LABS: Arsenic, Blood <1 ug/L (0-9); Lead, Blood <1 ug/dL (0-4); Mercury, Blood <1.0 ug/L (0.0-14.9)
[2021-09-13 10:47] LABS: Acetone <.010 g/dL (0.000-0.010); Butalbital <1 ug/mL (1-10); Chlordiazepoxide <0.1 ug/mL (0.1-0.9); Diazepam <0.1 ug/mL (0.1-0.9); Ethanol <.010 g/dL (0.000-0.010); Isopropanol <.010 g/dL (0.000-0.010); Pentobarbital <1 ug/mL (1-5)
--- NOTE | 2021-09-13 12:56 | CARE MANAGER ---
Contacted patient's phone number and reached his mother. She states he went to the doctor the 9th and is to follow up in the 9th. His appetite is better and he heasn't had any confusion. She denies questions or concerns. GLENNA Trujillo
== END 2021-09-10 10:45 | disposition home or self-care (01) ==
LOC: ER 20:22 → 2ND 20:32
PROVIDERS: Nurse Practitioner Family; Admitting Provider Emergency Medicine; Emergency Provider Emergency Medicine; PCP Emergency Medicine; Visit Provider Emergency Medicine
DX: R41.82 Altered mental status, unspecified (principal); F41.9 Anxiety disorder, unspecified; F17.210 Nicotine dependence, cigarettes, uncomplicated; Z20.822 Contact with and (suspected) exposure to COVID-19
CPT/HCPCS: 62270; 36415; 70450; 71045; 80048; 80053; 80305; 80306; 80329; 81001; 82175; 82945; 82962; 83605; 83655; 83825; 84155; 85025; 85651; 86140; 86618; 87040; 87070; 87205; 87252; 87507; 89051; 96375; 96376; 99285; C9803; G0378; J2405; U0003; U0005

== ENCOUNTER → 2021-10-03 11:15 | Outpatient (CLI) | payer BC, SELFPAY ==
--- NOTE | 2021-10-03 11:21 | MR_ITS ---
FINAL REPORT CLINICAL HISTORY: acute delirium, memory loss 17ml prohance injected FINDINGS: Multiplanar MR imaging of the brain was performed without and with contrast. There is a 4 mm focus of abnormal signal and restricted diffusion in the left internal capsule with an appearance consistent with an acute infarct. There is a 2nd questionable focus of restricted diffusion in the left posterior frontal complexity measuring 6 mm. This may represent artifact or a 2nd small acute infarct. There is no evidence of intracranial hemorrhage or mass. No abnormal extra-axial fluid collection is seen. The ventricular size is within normal limits. There is no evidence of shift of the midline structures. The posterior fossa and brainstem have an unremarkable appearance. Normal major vessel vascular flow voids are noted. IMPRESSION: 4 mm focus of abnormal signal and restricted diffusion in the left internal capsule with an appearance consistent with an acute infarct. 2nd questionable focus of restricted diffusion in the left posterior frontal complexity measuring 6 mm, may represent artifact or a 2nd small acute infarct. Reviewed, Interpreted and Dictated by Richmond Friend III, MD Transcribed by Gemma Moreno Authenticated by Richmond Firend III, MD on 10/03/2021 01:47:03 PM [facility]
== END ==
PROVIDERS: PCP Emergency Medicine; Visit Provider Emergency Medicine
DX: R41.0 Disorientation, unspecified (principal)
CPT/HCPCS: 70553; A9576

== ENCOUNTER → 2021-10-13 09:31 | Outpatient (CLI) | payer SELFPAY | PROVIDERS: PCP Emergency Medicine; Visit Provider Specialist | DX: R55 Syncope and collapse (principal) | CPT/HCPCS: 93270 ==